=== PATIENT | male | born 1975 | race Caucasian/White ===

== ENCOUNTER 2023-11-02 12:05 | Emergency (ER) | payer BC ==
[~2023-11-02] VITALS: Ht 182.9 cm; Wt 93.4 kg
[2023-11-02 12:06] VITALS: O2SAT 99
[2023-11-02] MEDS ORDERED: DEXAMETHASONE SOD PHOSPHATE 10 MG INJ ONE (12:38)
[2023-11-02] MEDS: DEXAMETHASONE SOD PHOSPHATE 4 MG INJ IV ONE (12:40)
[2023-11-02] MEDS: diphenhydrAMINE 50 MG/1 ML VIAL IV ONE (12:40)
[2023-11-02] MEDS: IV NORMAL SALINE 1000 ML BAG IV ONE (12:41)
[2023-11-02] MEDS: METOCLOPRAMIDE HCL 10 MG/2 ML VIAL IV ONE (12:43)
[2023-11-02] MEDS ORDERED: diphenhydrAMINE 50 MG/1 ML VIAL ONE (12:55)
[2023-11-02] MEDS ORDERED: METOCLOPRAMIDE HCL 10 MG/2 ML VIAL ONE (12:55)
[2023-11-02 13:39] LABS: ALANINE AMINOTRANSFERASE 102 U/L (16-63); ALBUMIN 3.9 g/dL (3.4-5.0); ALKALINE PHOSPHATASE 72 U/L (50-136); ASPARTATE AMINOTRANSFERASE 51 U/L (15-37); BILIRUBIN,DIRECT 0.2 mg/dL (0.0-0.2); BILIRUBIN,TOTAL 0.5 mg/dL (0.2-1.0); CARBON DIOXIDE 26 mmol/L (21-32); CHLORIDE 99 mmol/L (98-107); CREATININE 1.1 mg/dL (0.6-1.3); GLUCOSE 121 mg/dL (74-106); POTASSIUM 3.5 mmol/L (3.5-5.1); SODIUM SERUM 137 mmol/L (136-145); TOTAL PROTEIN, SERUM 7.9 g/dL (6.4-8.2); UREA NITROGEN, BLOOD 17 mg/dL (7-18)
[2023-11-02 13:41] LABS: BASOPHILS % (AUTO) 0.3 % (0.0-2.0); CREATINE KINASE, TOTAL 615 U/L (39-308); EOSINOPHILS % (AUTO) 0.7 % (0.0-7.0); HEMATOCRIT 42.6 % (36.7-47.1); LIPASE 55 U/L (16-77); LYMPHOCYTES # (AUTO) 2.1 K/uL (0.8-4.8); LYMPHOCYTES % (AUTO) 29.4 % (20.5-51.5); MEAN CORPUSCULAR HEMOGLOBIN 31.5 uug (23.8-33.4); MEAN CORPUSCULAR HGB CONC 35 g/dL (32.5-36.3); MEAN CORPUSCULAR VOLUME 89.2 fL (73.0-96.2); MONOCYTES # (AUTO) 0.6 K/uL (0.1-1.30); MONOCYTES % (AUTO) 7.8 % (0.0-11.0); NEUTROPHILS # (AUTO) 4.4 K/uL (1.8-8.9); NEUTROPHILS % (AUTO) 61.8 % (38.5-71.5); PLATELET COUNT (AUTO) 278 K/uL (152-348); RED BLOOD CELL COUNT(AUTO) 4.78 MIL/uL (4.06-5.63); RED CELL DISTRIBUTION WIDTH 12.4 % (12.1-16.2); WHITE BLOOD COUNT (AUTO) 7.1 K/uL (3.6-10.2)
[2023-11-02 14:48] LABS: LACTIC ACID 2.9 mmol/L (0.4-2.0)
[2023-11-02] MEDS ORDERED: SUCR1TAB31 PO (15:15)
[2023-11-02] MEDS ORDERED: AZIT500T PO (15:15)
[2023-11-02] MEDS ORDERED: METO-295 PO (15:15)
[2023-11-02 15:22] LABS: *BILIRUBIN,URIN NEGATIVE (NEGATIVE); *BLOOD, URINE NEGATIVE (NEGATIVE); *CLARITY,URINE CLEAR (CLEAR); *COLOR,URINE YELLOW (YELLOW); *KETONES,URINE 2+ (NEGATIVE); *PROTEIN,URINE 1+ (NEGATIVE); *UROBILINOGEN,URINE 0.2 E.U./dl (NORMAL); LEUKOCYTE ESTERASE ,URINE NEGATIVE (NEGATIVE); NITRITE, URINE NEGATIVE (NEGATIVE); UGLUCOSE NEGATIVE (NEGATIVE)
[2023-11-02 15:40] LABS: BACTERIA,URINE FEW /HPF (NONE SEEN); RBC,URINE 0-3 /HPF (0-3); WBC,URINE 0-3 /HPF (0-3)
[2023-11-02 15:41] LABS: MUCUS,URINE MODERATE /LPF (0-FEW); SQUAMOUS EPITHELIAL CELL,UR FEW /HPF (NONE SEEN)
== END 2023-11-02 15:50 | disposition home or self-care (01) ==
LOC: ER 12:05
DX: J18.9 Pneumonia, unspecified organism (principal); E86.0 Dehydration; Z79.899 Other long term (current) drug therapy; Z20.822 Contact with and (suspected) exposure to COVID-19
CPT/HCPCS: 99285; 74176; 96374; 71045; 96375; 96361; 87426; 87804 ×2; 80076; 80048; 81001; 82550; 83880; 83690; 85025; 84145; 85730; 87040 ×2; 84484; 36415; 93005; 83605 ×2; 87086; J1100; J1200; J2765; J7040; A4606; A4663